=== PATIENT | female | born 1975 | race Caucasian/White ===

== ENCOUNTER 2022-08-13 21:44 | Emergency (ER) | payer MEDICAID ==
[~2022-08-13] VITALS: Ht 154.9 cm; Wt 63.5 kg
[2022-08-13 21:51] VITALS: BP_SYST 126; PULSE 88; RESP 18; TEMP 98.4
--- NOTE | 2022-08-13 22:00 | NUR ---
PT WENT BED 06
--- NOTE | 2022-08-13 22:10 | NUR ---
MOTHER AT THE BEDSIDE
--- NOTE | 2022-08-13 22:10 | NUR ---
PT IS ALERT AND ORIENTED X 4 COMPALING RIGHT WRIST PAIN AFTER PICKING UP A LEMON.
[2022-08-13] MEDS ORDERED: MORPHINE 4 MG INJ. 4 MG/ML VIAL IVP ONE (22:30)
--- NOTE | 2022-08-13 23:10 | NUR ---
X RAY AT THE BEDSIDE
--- NOTE | 2022-08-13 23:45 | NUR ---
Emt putting a sling per doctor kendra.
[2022-08-14] MEDS ORDERED: KETOROLAC TROMETHAMINE 15 MG VIAL IVP ONE
[2022-08-14] MEDS ORDERED: HYDROcodone/ACETAMIN 5-325 MG TAB (NORCO/ VICODIN) PO ONE
[2022-08-14] MEDS ORDERED: IBUP-1969 PO (00:04)
[2022-08-14] MEDS ORDERED: HYDR-3917 PO (00:04)
[2022-08-14 00:26] VITALS: BP_SYST 126; PULSE 88; RESP 18; TEMP 98.4
--- NOTE | 2022-08-14 00:28 | NUR ---
Patient given written and verbal discharge instructions and verbalizes understanding. ER MD discussed with patient the results and treatment provided. Patient in stable condition. ID arm band removed. IV catheter removed intact and dressing applied, no active bleeding. Rx of norco and ibuprofen given. Patient educated on pain management and to follow up with PMD. Pain Scale 1/10. Opportunity for questions provided and answered. Medication side effect fact sheet provided.
== END 2022-08-14 00:26 | disposition home or self-care (01) ==
LOC: SED 21:44
DX: S52.124A Nondisplaced fracture of head of right radius, initial encounter for closed fracture (principal); R20.2 Paresthesia of skin; Z79.899 Other long term (current) drug therapy; W01.0XXA Fall on same level from slipping, tripping and stumbling without subsequent striking against object, initial encounter; Y93.89 Activity, other specified; Y92.89 Other specified places as the place of occurrence of the external cause; Y99.8 Other external cause status
CPT/HCPCS: 99284; 96374; 73080; 73110; 96375; J2270; J1885